=== PATIENT | female | born 2000 | race Two or more races ===

== ENCOUNTER 2022-09-11 01:47 | Emergency (ER) | payer OTHER ==
[~2022-09-11] VITALS: Ht 154.9 cm; Wt 81.6 kg
[2022-09-11] MEDS ORDERED: PRENA1 TRUE CO1 EACH PO (01:58)
== END 2022-09-11 04:06 | disposition home or self-care (01) ==
LOC: ER 01:47
DX: G43.909 Migraine, unspecified, not intractable, without status migrainosus (principal)

== ENCOUNTER 2022-11-16 11:14 | Inpatient (IN) | payer OTHER ==
[~2022-11-16] VITALS: Ht 152.4 cm; Wt 88.5 kg
[~2022-11-16 11:14] MED LIST: PRENA1 TRUE CO1 EACH PO
== END 2022-11-26 14:22 | disposition home or self-care (01) | DRG 807 ==
LOC: LDR 11-24 05:32 → OB/GYN 11-24 05:32
PROVIDERS: ADMIT Specialist; ATTEND Specialist
PROC: 10E0XZZ Delivery of Products of Conception, External Approach (ICD-10-PCS; principal; 2022-11-24)
PROC: 0UQG7ZZ Repair Vagina, Via Natural or Artificial Opening (ICD-10-PCS; 2022-11-24)
PROC: 0UQMXZZ Repair Vulva, External Approach (ICD-10-PCS; 2022-11-24)
PROC: 4A1HXCZ Monitoring of Products of Conception, Cardiac Rate, External Approach (ICD-10-PCS; 2022-11-24)
DX: O71.4 Obstetric high vaginal laceration alone (principal); Z37.0 Single live birth; O71.82 Other specified trauma to perineum and vulva; Z3A.39 39 weeks gestation of pregnancy; Z20.822 Contact with and (suspected) exposure to COVID-19